=== PATIENT | male | born 1960 | race Two or more races ===

== ENCOUNTER 2017-08-14 21:33 | Emergency (ER) | payer OTHER ==
[~2017-08-14] VITALS: Ht 180.3 cm; Wt 105.7 kg
[2017-08-14 21:35] VITALS: Ht 180.3 cm; Wt 105.7 kg
[2017-08-14 22:36] LABS: BASOPHIL % 0.6 % (0-2); PLATELET COUNT 223 x10^3mcL (130-400); RED CELL DISTRIBUTION WIDTH 13.5 % (11.5-14.5)
[2017-08-14 22:46] LABS: CALCIUM 8.8 mg/dL (8.5-10.1); CHLORIDE SERUM 102 mmol/L (98-107); GFR1 > 60 mL/min; GLUCOSE SERUM 141 mg/dL (74-106); POTASSIUM SERUM 3.6 mmol/L (3.5-5.1); SODIUM SERUM 140 mmol/L (136-145)
[2017-08-14 22:51] LABS: ALBUMIN 3.4 g/dL (3.4-5.0); ALKALINE PHOSPHATASE 77 U/L (46-116); ALT/SGPT 785 U/L (16-63); AMYLASE 62 U/L (25-115); AST/SGOT 496 U/L (15-37); BILIRUBIN TOTAL 1.5 mg/dL (0.20-1.00); LIPASE 254 IU/L (73-393); TOTAL PROTEIN, SERUM 6.6 g/dL (6.4-8.2)
[2017-08-15 02:08] VITALS: BP 132/97
== END 2017-08-15 02:08 | disposition home or self-care (01) ==
LOC: ED 21:33
PROVIDERS: Emergency Medicine
DX: R10.13 Epigastric pain (principal); K86.9 Disease of pancreas, unspecified; E11.9 Type 2 diabetes mellitus without complications; V49.88XA Car occupant (driver) (passenger) injured in other specified transport accidents, initial encounter; Y93.89 Activity, other specified; Y92.89 Other specified places as the place of occurrence of the external cause; Y99.8 Other external cause status
CPT/HCPCS: 83880; J1200; J2765; J7030; Q9967